=== PATIENT | male | born 1990 | race Caucasian/White ===

== ENCOUNTER → 2024-01-07 06:35 | Outpatient (REF) | payer OTHER, SELFPAY | LOC: HWRAD 06:35 | PROVIDERS: ATTENDING PHYSICIAN Nurse Practitioner Adult Health; FAMILY PHYSICIAN Nurse Practitioner Family | DX: M54.2 Cervicalgia (principal) | CPT/HCPCS: 72040 ==

== ENCOUNTER → 2024-08-04 06:15 | Outpatient (REF) | payer BC, SELFPAY | LOC: HWRAD 06:15 | PROVIDERS: ATTENDING PHYSICIAN Nurse Practitioner; FAMILY PHYSICIAN Nurse Practitioner Family | DX: M54.2 Cervicalgia (principal) | CPT/HCPCS: 72050 ==

== ENCOUNTER → 2025-03-26 10:56 | Outpatient (REF) | payer BC, SELFPAY | LOC: HWRAD 10:56 | PROVIDERS: ATTENDING PHYSICIAN Nurse Practitioner Family | DX: R05.9 Cough, unspecified (principal) | CPT/HCPCS: 71046 ==

== ENCOUNTER 2025-08-12 21:32 | Emergency (ER) | payer BC, SELFPAY ==
[2025-08-12 21:39] VITALS: BP 163/100
[2025-08-12 21:42] VITALS: BP 163/101
[2025-08-12 22:04] LABS: Hematocrit 45.5 % (39.0-52.0); Hemoglobin 15.2 g/dL (13.0-18.0); Mean Corp Hgb Conc. 33.4 g/dL (33.0-37.0); Mean Corpuscular Volume 86.8 fL (80.0-94.0); Nucleated Red Blood Cells % 0 % (-); Platelet Count 234 10^3/uL (130-400); Red Cell Dist. Width 13.2 % (11.5-14.5)
[2025-08-12 22:18] LABS: ALT (SGPT) 50 U/L (0-50); AST (SGOT) 28 U/L (17-59); Albumin 4.6 g/dl (3.5-5.0); Alkaline Phosphatase 66 U/L (38-126); Blood Urea Nitrogen 19 mg/dl (9-20); Calcium 9.3 mg/dl (8.4-10.2); Carbon Dioxide 26 mmol/L (22-30); Chloride 103 mmol/L (98-107); Estimated Creatinine Clearance > 125 ml/min; Glucose 118 mg/dl (70-99); Lipase 64 U/L (23-300); Potassium 4.2 mmol/L (3.5-5.1); Sodium 137 mmol/L (135-145); Total Protein 7.6 g/dl (6.3-8.2); eGFR > 60.00
[2025-08-12 22:28] LABS: Troponin I < 0.012 ng/ml
[2025-08-13] VITALS: BP 159/82
--- NOTE | 2025-08-13 01:58 | ED.GENMED ---
History of Present Illness
General
Chief Complaint: Chest Pain
Source: patient
Exam Limitations: none
Time Seen by Provider: 08/12/25 23:58
Nursing documentation reviewed up to this point in time: agreed with
History of Present Illness
History of Present Illness:
35-year-old male presenting to the emergency department today with concerns of right rib quadrant abdominal pain that occurred prior to arrival that is since resolved. On arrival vital signs normal patient no distress labs unremarkable troponin
negative chest x-ray normal, EKG normal.
Past History
Past History
ED Past Medical History: None
ED Past Surgical History: None
Social History
Tobacco: Non-smoker
Alcohol: None
Drug: None
Personal: Single
Living: with family
Review of Systems
Review of Systems
Allergies reviewed?: Yes
All Other Systems: ROS reviewed and negative except as documented in HPI and ROS
Phy Exam
Physical Exam
Physical Exam:
GENERAL: Alert , in no apparent distress
EYE: pupils equal and reactive
NECK: Supple, no significant adenopathy.
ENT: o/p clr, mmm.
CARDIAC: Regular rate and rhythm .
LUNGS: Clear breath sounds bilaterally, no acute respiratory distress, no wheezes/rales/rhonchi
ABDOMEN: Soft, without focal tenderness, no r/g, no cvat
NEUROLOGICAL: Alert and oriented, no focal neuro deficits
SKIN: Warm and dry, skin intact.
MUSCULOSKELETAL: No edema, well perfused.
PSYCH: Normal and appropriate interaction.
Scores
Heart Score for Chest Pain Patients
STEMI patient?: No
History: Slightly or Non-Suspicious
ECG: Normal
Age: </= 45 years
Risk Factors: No Risk Factors
Troponin: </= Normal Limit
Heart Score for Chest Pain Patients: 0
Heart Score Risk: 2.5% MACE over next 6 weeks
Course
Orders/Labs/Results
Orders:
Orders
08/12/25 21:34
Electrocardiogram (*1) Urgent
Reason for Study: Chest Pain
Electrocardiogram (*1) Urgent
Reason for Study: Chest Pain
EKG- Treatment ONCE
08/12/25 21:35
EKG- Treatment ONCE
08/12/25 21:50
Complete Blood Count/With Diff Urgent
Comprehensive Metabolic Panel Urgent
Lipase Urgent
Troponin I Urgent
08/13/25 00:51
Chest [CR Chest - 2 Views ] Urgent
Comment:
Reason For Exam: cp
Abnormal Lab Results
08/12/25
21:50
MPV 10.8 H fL
(7.4-10.4)
Absolute Monos (auto) 0.7 H 10^3/uL
(0.1-0.6)
Glucose 118 H mg/dl
(70-99)
08/12/25 21:50
08/12/25 21:50
Vital Signs
Initial and Last Documented VS:
Initial Vital Signs
Temp Pulse Resp BP Pulse Ox
97.8 F 71 22 163/100 98
08/12/25 21:39 08/12/25 21:39 08/12/25 21:39 08/12/25 21:39 08/12/25 21:39
Last Documented Vital Signs
Temp Pulse Resp BP Pulse Ox
97.8 F 84 24 159/82 97
08/12/25 21:39 08/13/25 00:15 08/13/25 00:15 08/13/25 00:00 08/13/25 00:19
MDM/Problems Addressed
MDM/Problems Addressed:
35-year-old male presenting to the emergency department with concerns of right upper quadrant abdominal pain an hour or so after eating chicken wings tonight. Here assessment reassuring symptoms fully resolved prior to my assessment. No abdominal
pain heart and lung exam. No signs of emergent process stable for outpatient follow-up. Return precautions given.
*Pulse Oximetry
SaO2: 97
Oxygen Mode of Delivery: Room air
Patient hypoxic: no (97)
*Critical Care Note
Total Time (30-74mins, 75-104mins- exclusive of procedures): Not Applicable
ED Attending Note
-
Portions of this chart may have been created with voice recognition software.� Occasional wrong word or��sound alike� substitutions may have occurred due to the inherent limitations of voice recognition software.
Discharge Plan
Departure
Patient Disposition: Home (Routine Discharge)
Date of Disposition: 08/13/25
Time of Disposition: 01:58
Patient with high blood pressure during this ER visit?: No
Condition: Good
Covid-19: Not Applicable
Discharge Problem:
Chest pain
Instructions: Chest Pain PCP Follow Up
Prescriptions:
No Action
No Current Medications
0
Referrals:
Joey Nicholson CRNP [Family Provider, Family Practice]
Activity Restrictions/Additional Instructions:
You came to the emergency department today with concerns of right lower chest right upper quadrant abdominal pain. It is since resolved prior to my assessment. This could represent an abdominal process or gallbladder issue. Please follow closely
as an outpatient with your primary care doctor. Return for any worsening, new or concerning symptoms.
Interventions
Interventions:
*Risk Screen - Suicide Last Done: 08/12/25 21:39
*General Assessment Last Done: 08/13/25 00:22
*Neglect/Abuse Screening Last Done: 08/13/25 00:22
*ED- Fall Risk Assessment Last Done: 08/13/25 00:22
*ED COVID-19 Vaccine History Last Done: 08/13/25 00:22
*ED Influenza Vaccine History Last Done: 08/13/25 00:22
ED- Cardiac Assessment Last Done: 08/12/25 23:55
Discharge Date and Time
Print Language: [id number]
== END 2025-08-13 02:05 | disposition home or self-care (01) ==
LOC: EMR 21:32
PROVIDERS: Emergency Medicine; EMERGENCY PHYSICIAN Student in an Organized Health Care Education/Training Program; FAMILY PHYSICIAN Nurse Practitioner Family
DX: R07.9 Chest pain, unspecified (principal)
CPT/HCPCS: 99284; 71046; 80053; 83690; 84484; 85025; 93005